=== PATIENT | male | born 1965 | race Hispanic/Latino ===

== ENCOUNTER 2017-08-18 11:49 | Emergency (ER) | payer OTHER ==
[~2017-08-18 11:49] MED LIST: FAMO-136 PO; ONDA4TAB7 PO; SIME80TA66 PO; TYL3 PO
== END 2017-08-18 15:42 | disposition home or self-care (01) ==
LOC: EDH 11:49
DX: Z46.6 Encounter for fitting and adjustment of urinary device (principal); Z87.891 Personal history of nicotine dependence
CPT/HCPCS: 74430

== ENCOUNTER 2018-08-08 21:16 | Emergency (ER) | payer OTHER, SELFPAY ==
[~2018-08-08 21:16] MED LIST changes: -FAMO-136 PO; +OMEP40CA37 PO; -ONDA4TAB7 PO; -SIME80TA66 PO; -TYL3 PO
[2018-08-08 21:54] LABS: APPEARANCE,URINE Clear (CLEAR); BILIRUBIN,URINE Negative (NEGATIVE); COLOR,URINE Yellow (YELLOW); GLUCOSE, URINE (UA) Negative (NEGATIVE); KETONES,URINE Negative (NEGATIVE); LEUKOCYTE ESTERASE ,URINE Negative (NEGATIVE); NITRATE,URINE Negative (NEGATIVE); OCCULT BLOOD,URINE Large (NEGATIVE); PROTEIN,URINE Trace mg/dL (NEGATIVE)
[2018-08-08 21:58] LABS: BACTERIA,URINE Rare /HPF (None Seen); SQUAMOUS EPITHELIAL CELL,UR None Seen /HPF (0-2); WBC,URINE 0-1 /HPF (0-1)
[2018-08-08] MEDS ORDERED: ONDANSETRON HCL 4 MG/2 ML VIAL ONE (22:00)
[2018-08-08] MEDS ORDERED: MORPHINE SULFATE 4 MG/1ML SYG ONE (22:01)
[2018-08-08] MEDS ORDERED: SODIUM CHLORIDE 0.9% 1000ML 1,000 ML IV ONE (22:01)
[2018-08-08 22:22] LABS: BASOPHILS % (AUTO) 0.7 % (0.0-5.0); EOSINOPHILS % (AUTO) 0.1 % (0.0-8.0); HEMATOCRIT 41.7 % (42-54); LYMPHOCYTES % (AUTO) 13.2 % (21.0-51.0); MEAN CORPUSCULAR HEMOGLOBIN 31.1 pg (27.0-33.0); MEAN CORPUSCULAR HGB CONC 33.9 g/dL (32.0-36.0); MEAN CORPUSCULAR VOLUME 91.7 fL (79-99); MONOCYTES % (AUTO) 5.4 % (3.0-13.0); NEUTROPHILS % (AUTO) 80.6 % (40.0-77.0); PLATELET COUNT (AUTO) 371 K/uL (130-400); RED BLOOD CELL COUNT(AUTO) 4.55 MIL/uL (4.50-6.20); RED CELL DISTRIBUTION WIDTH 14.5 % (11.0-15.5); WHITE BLOOD COUNT (AUTO) 14.6 K/uL (4.8-10.8)
[2018-08-08 22:32] LABS: CREATININE 1.9 mg/dL (0.5-1.5)
[2018-08-08 22:36] LABS: INR 0.93 (0.85-1.15); PARTIAL THROMBOPLASTIN TIME 28.7 SEC (26.3-35.5); PROTHROMBIN TIME 9.8 SEC (9.6-11.6)
[2018-08-08 22:37] LABS: ALBUMIN 3.7 g/dL (3.5-5.0); BILIRUBIN,DIRECT 0.1 mg/dL (0.0-0.3); BILIRUBIN,TOTAL 0.3 mg/dL (0.2-1.0); TOTAL PROTEIN, SERUM 7.9 g/dL (6.0-8.3)
== END 2018-08-08 23:10 | disposition home or self-care (01) ==
LOC: EDH 21:16
DX: N13.2 Hydronephrosis with renal and ureteral calculous obstruction (principal); N28.9 Disorder of kidney and ureter, unspecified; Z90.49 Acquired absence of other specified parts of digestive tract; Z87.891 Personal history of nicotine dependence
CPT/HCPCS: 36415; 74176; 80048; 80076; 81001; 83690; 84484; 85025; 85610; 85730; 93005; 96374; 96375; 99285; J2270; J2405; J7030

== ENCOUNTER 2025-01-03 08:49 | Emergency (ER) | payer BC, SELFPAY ==
[~2025-01-03] VITALS: Ht 172.7 cm; Wt 111.1 kg
[~2025-01-03 08:49] MED LIST changes: +OMEP40CA21 PO; -OMEP40CA37 PO
[2025-01-03 09:38] LABS: IMMATURE GRANULOCYTE ABSOLUTE 0.03 K/uL (0-1); NUCLEATED RED BLOOD CELLS 0.0 % (0.0-0.19); PLATELET COUNT (AUTO) 363 K/uL (130-400); RED BLOOD CELL COUNT(AUTO) 4.77 MIL/uL (4.50-6.20); RED CELL DISTRIBUTION WIDTH 13.5 % (11.0-15.5); WHITE BLOOD COUNT (AUTO) 9.4 K/uL (4.8-10.8)
[2025-01-03 09:50] LABS: INR 0.97 (0.85-1.15)
[2025-01-03 09:51] LABS: ASPARTATE AMINOTRANSFERASE 25.0 U/L (10-37); CREATININE 1.4 mg/dL (0.5-1.3); GLOMERULAR FILTR. RATE CALC 57.0 mL/min (>90); GLUCOSE,RANDOM 149.0 mg/dL (70-105); SODIUM SERUM 134.0 mmol/L (136-145); TOTAL PROTEIN, SERUM 7.8 g/dL (6.0-8.3); UREA NITROGEN, BLOOD 17.0 mg/dL (7-18)
--- NOTE | 2025-01-03 10:29 | NUR ---
IN CT AT THIS TIME
--- NOTE | 2025-01-03 11:06 | HMCIMG ---
EXAM: CT Abdomen and Pelvis Without IV contrast CLINICAL HISTORY: Diffuse pain and GI bleed TECHNIQUE: Axial computed tomography images of the abdomen and pelvis without intravenous contrast. CONTRAST: No IV contrast. COMPARISON: None provided. FINDINGS: LUNG BASES: The lung bases appear clear. No pleural effusions. LIVER: Approximately 8 x 7 mm small hypodense area in the right lobe. GALLBLADDER AND BILE DUCTS: Status post cholecystectomy. No biliary ductal dilatation. PANCREAS: Unremarkable. SPLEEN: Unremarkable. ADRENAL GLANDS: Unremarkable. KIDNEYS, URETERS, AND BLADDER: Minimal perinephric fat stranding bilaterally, advise renal function test correlation. No hydronephrosis or hydroureter. The urinary bladder is distended with a slightly thick, irregular wall; possibility of cystitis. STOMACH AND BOWEL: Otherwise, the stomach and bowel loops appear normal. Small hiatal hernia. Colonic diverticulosis without evidence of diverticulitis. There is a prior large bowel surgery. No evidence of bowel obstruction. No evidence suggesting enteritis or colitis. APPENDIX: No evidence of acute appendicitis on CT examination. PERITONEUM: No free fluid. No free air. LYMPH NODES: No lymphadenopathy. REPRODUCTIVE: Unremarkable as visualized. VASCULATURE: No evidence of abdominal aortic aneurysm. BONES: No aggressive appearing osseous lesion. No acute osseous pathology. IMPRESSION: Mild diffuse urinary bladder wall thickening concerning cystitis. Colonic diverticulosis with no acute diverticulitis. Further evaluation with CTA of the abdomen and pelvis is recommended to rule out active GI bleed or vascular abnormality. /[place]
[2025-01-03] MEDS ORDERED: METR-361 PO (11:51)
--- NOTE | 2025-01-03 11:51 | ERN ---
ED Note History of Present Illness Stated Complaint: BLEEDING Chief Complaint: Bloody Stool Time Seen by MD: 08:56 Dictation: 59-year-old male presenting to the emergency department for bright red blood in stool this morning not associated with any pain or abdominal cramps. Patient denies any chest pain shortness of breath, history of gallbladder removal. Allergies: Coded Allergies: No Known Drug Allergies (Verified Allergy, Unknown, 07/31/17) Home Meds Reported Medications Omeprazole (Omeprazole) 40 Mg Capsule.dr, 40 MG PO DAILY, CAP 10/01/17 Past Medical History Past Medical History: No Pertinent History Surgical History: Cholecystectomy, Other Surgical History Other: COLON RESECTION Review of System Dictation Constitutional: Negative for fever,chills, and weight loss Eyes: Negative for injury, pain,redness, and discharge ENT: Negative for injury,pain or swelling Cardiovascular: Negative for chest pain, palpitations, and edema Respiratory: Negative for shortness of breath, cough, and wheezing, Abdomen/GI: Per HPI : Negative for injury, bleeding and discharge MS/Extremity: Negative for injury and deformity Skin: Negative for rash, and discoloration Neuro: Negative for headache, weakness, numbness, tingling, and seizure Psych: Negative for suicide ideation, homicidal ideation, and hallucinations Initial Vital Sign VS Vital Signs Date Time Temp Pulse Resp B/P (MAP) Pulse Ox O2 Delivery O2 Flow Rate FiO2 01/03/25 08:50 98.4 105 18 157/86 98 Room Air 0 01/03/25 10:21 21 Physical Exam Dictation General: awake, alert, NAD Head/Face: Normocephalic, atraumatic Eyes: PERRL, EOMI, vision at baseline ENT: oral cavity clear, TMs clear, no signs of infection Neck: Trachea midline, supple, no nuchal rigidity Cardiovascular: RRR, normal S1/S2, No MRGs, no JVD Respiratory: CTAB, no respiratory distress, No rales or wheezes Abdomen: Soft, non-tender, non-distended, normal bowel sounds, no guarding or rebound. Skin: Warm, dry, normal turgor, no rash MS/Extremity: Pulses equal, no cyanosis, neurovascular intact, FROM Neuro: COAx4, GCS 15, strength 5/5, CN 2-12 intact, normal cerebellar exam, normal gait, Psych: Normal behavior, mood, and affect normal Results (Laboratory/Radiology) Laboratory/Radiology Laboratory Tests Test 01/03/25 09:30 White Blood Count 9.4 K/uL (4.8-10.8) Red Blood Count 4.77 MIL/uL (4.50-6.20) Hemoglobin 14.9 g/dL (14.0-18.0) Hematocrit 44.9 % (42-54) Mean Corpuscular Volume 94.1 fL (79-99) Mean Corpuscular Hemoglobin 31.2 pg (27.0-33.0) Mean Corpuscular Hemoglobin Concent 33.2 g/dL (32.0-36.0) Red Cell Distribution Width 13.5 % (11.0-15.5) Platelet Count 363 K/uL (130-400) Mean Platelet Volume 9.6 fL (7.5-10.5) Immature Granulocyte % (Auto) 0.3 % (0-1) Neutrophils (%) (Auto) 80.4 % (40.0-77.0) H Lymphocytes (%) (Auto) 13.2 % (21.0-51.0) L Monocytes (%) (Auto) 5.3 % (3.0-13.0) Eosinophils (%) (Auto) 0.3 % (0.0-8.0) Basophils (%) (Auto) 0.5 % (0.0-5.0) Neutrophils # (Auto) 7.6 K/uL (1.8-7.7) Lymphocytes # (Auto) 1.2 K/uL (1.0-4.8) Monocytes # (Auto) 0.5 K/uL (0.1-1.0) Eosinophils # (Auto) 0.03 K/uL (0.00-0.70) Basophils # (Auto) 0.05 K/uL (0.00-0.20) Absolute Immature Granulocyte (auto 0.03 K/uL (0-1) Nucleated Red Blood Cells 0.0 % (0.0-0.19) Prothrombin Time 10.3 SEC (9.6-11.6) Prothromb Time International Ratio 0.97 (0.85-1.15) Activated Partial Thromboplast Time 27.7 SEC (26.3-35.5) Sodium Level 134 mmol/L (136-145) L Potassium Level 4.6 mmol/L (3.5-5.1) Chloride Level 100 mmol/L (101-111) L Carbon Dioxide Level 28 mmol/L (21-32) Blood Urea Nitrogen 17 mg/dL (7-18) Creatinine 1.4 mg/dL (0.5-1.3) H Glomerular Filtration Rate Calc 57 mL/min (>90) Random Glucose 149 mg/dL (70-105) H Total Calcium 8.3 mg/dL (8.5-10.1) L Total Bilirubin 0.3 mg/dL (0.2-1.0) Direct Bilirubin 0.1 mg/dL (0.0-0.3) Aspartate Amino Transf (AST/SGOT) 25 U/L (10-37) Alanine Aminotransferase (ALT/SGPT) 36 U/L (12-78) Alkaline Phosphatase 94 U/L (50-136) Total Protein 7.8 g/dL (6.0-8.3) Albumin 3.6 g/dL (3.5-5.0) Lipase 45 U/L (16-77) Labs Reviewed?: Yes ED Course ED Course Orders Procedure Category Date Status Time Basic Metabolic Panel LAB 01/03/25 Complete 09:00 Cbc With Differential LAB 01/03/25 Complete 09:00 Hepatic Function Panel LAB 01/03/25 Complete 09:00 Pt And Ptt LAB 01/03/25 Complete 09:00 Lipase LAB 01/03/25 Complete 09:00 Ct Abd/Pel Wo Con CT 01/03/25 Resulted Renal/Appy 09:24 Vital Signs Date Time Temp Pulse Resp B/P (MAP) Pulse Ox O2 Delivery O2 Flow Rate FiO2 01/03/25 10:21 97.9 90 18 135/86 95 Room Air* 0 21 01/03/25 08:50 98.4 105 18 157/86 98 Room Air 0 Medical Decision Making MDM MDM: Differential diagnosis: Rationale: Tests considered and ordered secondary to shared decision making include: Previous outside records reviewed: Old ER visits. Risk of complication and/or morbidity or mortality of patient management: None Medications-Per medication reconciliation Need for hospitalization: Patient does not meet criteria for hospitalization. Need for emergency major/minor surgery: No There are no social concerns with this patient. Prescription drug management Prescriptions will include symptomatic care Patient's prior external medical records from other ER visits were reviewed by me as indicated. Prior testing and results from previous visits were reviewed. Prior tests were taken into account with medical decision making and resource utilization, independent historian/historians were used to obtain complete medical history. I independently interpreted the test that were performed, results were reviewed by me and considered findings on radiology if ordered. Medical management and examination interpretation discussions were had by me with other qualified healthcare professionals as indicated for the patient's care. 59-year-old male with right red blood per rectum stable exam, CT scan and blood work negative vital signs all stable no distress placed on Flagyl and referred to primary care doctor for further care and evaluation advised that he needs to see GI for possible colonoscopy if indicated. DX & DISP Disposition: Discharge Departure Impression: Primary Impression: Bright red rectal bleeding Condition: Stable Scripts Metronidazole (Metronidazole) 250 Mg Tablet 1 TAB PO TID for 5 Days, #15 TAB 0 Refills Prov: RAUDEL LIVINGSTON MD 01/03/25 Referrals: SELF,REFERRAL (PCP) RAUDEL LIVINGSTON MD Jan 03, 2025 11:51
[2025-01-03 12:22] VITALS: BP 131/86; PULSE 88; RESP 16; TEMP 97.9; O2SAT 98
== END 2025-01-03 12:49 | disposition home or self-care (01) ==
LOC: EDH 08:49
DX: K62.5 Hemorrhage of anus and rectum (principal); Z79.899 Other long term (current) drug therapy; Z90.49 Acquired absence of other specified parts of digestive tract
CPT/HCPCS: 36415; 74176; 80048; 80076; 83690; 85025; 85610; 85730; 99284